=== PATIENT | female | born 1960 | race Two or more races ===

== ENCOUNTER 2021-04-19 09:00 | Inpatient (IN) | payer OTHER ==
[~2021-04-19] VITALS: Ht 160 cm; Wt 63.5 kg
[2021-04-19] MEDS ORDERED: PANTOPRAZOLE SO40 M2 PO (12:18)
[2021-04-25] MEDS ORDERED: CARAFATE1 GM/10 ML PO (17:54)
[2021-04-25] MEDS ORDERED: ULTRACET PO (17:54)
[2021-04-25] MEDS ORDERED: NEXIUM 24HR20 MG PO (17:55)
[2021-04-25] MEDS ORDERED: ZOFRAN8 MG PO (17:55)
[2021-04-25] MEDS ORDERED: GAS RELIEF 8080 MG PO (17:56)
== END 2021-04-25 22:13 | disposition home or self-care (01) | DRG 326 ==
LOC: O/R 04-24 06:00 → SURH 04-24 09:00 → SURG 04-24 13:05
PROVIDERS: ADMIT Surgery; ATTEND Surgery
PROC: 0WQF4ZZ Repair Abdominal Wall, Percutaneous Endoscopic Approach (ICD-10-PCS; 2021-04-24)
PROC: 0DQ44ZZ Repair Esophagogastric Junction, Percutaneous Endoscopic Approach (ICD-10-PCS; 2021-04-24)
PROC: 0BUT4JZ Supplement Diaphragm with Synthetic Substitute, Percutaneous Endoscopic Approach (ICD-10-PCS; principal; 2021-04-24 09:30)
DX: K44.9 Diaphragmatic hernia without obstruction or gangrene (principal); K56.2 Volvulus; K42.9 Umbilical hernia without obstruction or gangrene; K43.2 Incisional hernia without obstruction or gangrene; K31.89 Other diseases of stomach and duodenum; K29.70 Gastritis, unspecified, without bleeding; K57.30 Diverticulosis of large intestine without perforation or abscess without bleeding; Z86.010 Personal history of colon polyps; K20.80 Other esophagitis without bleeding